=== PATIENT | male | born 1970 | race Caucasian/White ===

== ENCOUNTER 2018-10-08 10:02 | Inpatient (IN) | payer MEDICAID ==
[~2018-10-08] VITALS: Ht 167.6 cm; Wt 80.7 kg
--- NOTE | 2018-10-08 10:19 | NUR ---
Patient to ER bed 8 to gown for evaluation. Side rails up. Report given to Anu LUCERO
[2018-10-08 10:20] VITALS: BP_SYST 150
--- NOTE | 2018-10-08 10:32 | NUR ---
ER Dr. HATFIELD at bedside examining patient.
[2018-10-08] MEDS ORDERED: DIPHENHYDRAMINE INJ 50 MG/ML VIAL IVP ONE (10:45)
[2018-10-08] MEDS ORDERED: MORPHINE 4 MG/ML INJ. SYRINGE IVP ONE (10:45)
[2018-10-08] MEDS ORDERED: PANTOPRAZOLE SODIUM 40 MG/VIAL (PROTONIX) IVP ONE (10:45)
[2018-10-08] MEDS ORDERED: PIPERACILLIN/TAZO 3.38 GM in NS 50 ML IV ONE (10:45)
--- NOTE | 2018-10-08 10:45 | NUR ---
# 20 gauge angiocath placed to RIGHT AC. Use of asceptic technique. Opsite placed over site. Blood return noted. Blood for lab drawn from site. Flushed with 10 cc of normal saline. No evidence of infiltration noted. Patient tolerated well.
--- NOTE | 2018-10-08 10:47 | NUR ---
Pt ambulated to ED with complaints of upper abdominal pain 01/26. Pt stated pain stated this morning at 4am and has been persistent. Pt stated the last time he has had this type of pain 4 months ago. Pt connected to in room monitor.
[2018-10-08 11:02] LABS: BASOPHILS % (AUTO) 0.1 % (0.0-2.0); EOSINOPHILS % (AUTO) 0.2 % (0.0-4.0); HEMATOCRIT 47.8 % (36-54); HEMOGLOBIN 15.8 g/dL (14.0-18.0); LYMPHOCYTES # (AUTO) 0.8 K/uL (1.0-5.5); LYMPHOCYTES % (AUTO) 5.9 % (20.5-51.5); MEAN CORPUSCULAR HEMOGLOBIN 31 pg (27-31); MEAN CORPUSCULAR HGB CONC 33 % (32-36); MEAN CORPUSCULAR VOLUME 92 fL (79.0-98.0); MONOCYTES # (AUTO) 0.4 K/uL (0.0-1.0); MONOCYTES % (AUTO) 2.9 % (1.7-9.3); NEUTROPHILS # (AUTO) 12.3 K/uL (1.8-7.7); NEUTROPHILS % (AUTO) 90.9 % (40.0-70.0); PLATELET COUNT (AUTO) 257 K/uL (130-430); RED CELL DISTRIBUTION WIDTH 13.2 % (9.0-15.0); WHITE BLOOD COUNT (AUTO) 13.5 K/uL (4.8-10.8)
--- NOTE | 2018-10-08 11:05 | NUR ---
PATIENT GETTING X RAY IN BED.
[2018-10-08 11:10] LABS: CALCIUM 9.3 mg/dL (8.4-11.0); CREATININE 1.16 mg/dL (0.55-1.30); POTASSIUM 3.7 mmol/L (3.5-5.1)
[2018-10-08] MEDS ORDERED: PIPERACILLIN/TAZOBACTAM 3.375 GM/VIAL (ZOSYN) IV ONE (11:11)
[2018-10-08 11:13] LABS: PROTHROMBIN TIME 10.6 SECS (9.5-12.5)
[2018-10-08 11:27] LABS: ALBUMIN 3.9 g/dL (3.4-4.8)
--- NOTE | 2018-10-08 11:37 | NUR ---
Radiology Pt off unit to CT
--- NOTE | 2018-10-08 11:44 | NUR ---
Radiology Pt returned from CT to room 8.
[2018-10-08 12:20] LABS: BILIRUBIN,URINE NEGATIVE (NEGATIVE); BLOOD, URINE NEGATIVE (NEGATIVE); CLARITY/URINE CLEAR (CLEAR); COLOR,URINE YELLOW (YELLOW); GLUCOSE,URINE NEGATIVE (NEGATIVE); KETONES,URINE NEGATIVE (NEGATIVE); LEUKOCYTE ESTERASE ,URINE NEGATIVE (NEGATIVE); NITRITE, URINE NEGATIVE (NEGATIVE); PH,URINE 8.5 (5.0-8.0); PROTEIN URINE NEGATIVE (NEGATIVE); UROBILINOGEN,URINE 0.2 (0.2-1.0)
[2018-10-08] MEDS ORDERED: NACL 0.9% 1,000 ML IV ONE (12:30)
--- NOTE | 2018-10-08 12:39 | NUR ---
Patient resting quietly. No acute distress noted. Vital signs within normal range.
--- NOTE | 2018-10-08 13:39 | NUR ---
Spoke to [facility] MED-SURG Room 123-B given.
[2018-10-08] MEDS ORDERED: MORPHINE 2 MG/ML INJ. SYRINGE IVP SCH (13:45)
--- NOTE | 2018-10-08 13:56 | NUR ---
CONSULTATION PAGED/CALLED Reason for Consultation: Pancreatitis Person Who was Notified: SOFYA Consulting Physician: DR. BECKER Occupational Therapy Program Director Specialty: HYDRATOR Ordering Physician:
--- NOTE | 2018-10-08 14:01 | NUR ---
Patient will be admitted to care of Dr. Corral. Admitted to MED-SURG unit. Will go to room 123-B. Belongings list completed. Summary report printed. Report given over the phone to
--- NOTE | 2018-10-08 14:03 | NUR ---
ADMISSION NOTE Received patient from ER via [place], Patient admitted with diagnosis of PANCREATITIS. Patient oriented to hospital routine, call light, toileting and safety-patient verbalized understanding.
[2018-10-08 14:09] VITALS: BP_SYST 113
--- NOTE | 2018-10-08 14:10 | NUR ---
OPENING NOTES, RECEIVED PT IN E.R. PT IS AAOX4, C/O OF MID TO RIGHT ABD PAIN 5/10, WILL MEDICATE, NO SOB NO DISTRESS. NOTED THAT PT WAS SHAKING/ STATED THAT HE IS COLD. COVERED WITH BLANKET AND MADE COMFORTABLE. PT'S BROTHER AT BEDSIDE. , PT EDUCATED ON THE USE OF CALL LIGHT , TV AND BED CONTROLS. ENCOURGAED TO CALL FOR ASSIST AND PAIN MEDS AND ANY OTHER CONCERNS. WILL CONT TO MONITOR.
[2018-10-08] MEDS: D5NS 500 ML IV SCH ×2 (14:49→20:41)
--- NOTE | 2018-10-08 14:58 | NUR ---
pt given pain med for abdominal pain. will cont to monitor. pt kept npo.
--- NOTE | 2018-10-08 15:50 | NUR ---
PT IN BED, STILL HAVE PAIN, WILL CONT TO MONITOR. IV FLUIDS INFUSING WELL.
[2018-10-08] MEDS ORDERED: ZOLPIDEM TARTRATE 5 MG TABLET PO PRN (16:30)
[2018-10-08] MEDS ORDERED: MUPIROCIN 2% TOPICAL OINTMENT 22 GM NS PRN (16:30)
[2018-10-08] MEDS ORDERED: MAGNESIUM SULFATE 50 ML IV PRN (16:30)
[2018-10-08] MEDS ORDERED: MORPHINE 2 MG/ML INJ. SYRINGE IVP PRN ×2 (16:30)
[2018-10-08] MEDS ORDERED: DOCUSATE SODIUM 100 MG CAPSULE PO PRN (16:30)
[2018-10-08] MEDS ORDERED: POTASSIUM CHLORIDE 20 MEQ TAB.PRT.SR PO PRN (16:30)
[2018-10-08] MEDS ORDERED: ACETAMINOPHEN 325 MG TABLET PO PRN (16:30)
[2018-10-08] MEDS ORDERED: ONDANSETRON HCL 4 MG/2 ML VIAL IVP PRN (16:30)
[2018-10-08] MEDS ORDERED: LORazepam 2 MG/ML VIAL IVP PRN (16:30)
[2018-10-08 16:40] VITALS: BP_SYST 142
--- NOTE | 2018-10-08 18:33 | NUR ---
CLOSING NOTES, PT HAS NO FEVER, GIVEN PAIN MEDS FOR ABDOMINAL PAIN, KEPT NPO ORDERED. EXPLAINED TO PT AND FAMILY WHY HE NEEDS TO BE NO FOOD NO WATER. WILL ENDORSE TO NIGHT RN.
--- NOTE | 2018-10-08 19:08 | NUR ---
Opening Notes Received the patient in bed resting aaox4 and able to verbalize his needs. No complaints of pain at this time. Family is at the bedside. IV on the RIGHT AC 20g infusing D5NS at 80ml. Oriented the patient to the room and use of the call light. Call light within reach and Urinal on the right side. Bed alarm is active and safety precautions in place. Will monitor on rounds for any change in condition.
[2018-10-08 20:00] VITALS: BP_SYST 106
[2018-10-08] MEDS ORDERED: PHENYLEPHRINE HCL 10 MG/ML VIAL (NEOSYNEPHRINE) IV ONE (21:00)
[2018-10-08] MEDS ORDERED: PROPOFOL 200MG/ 20ML VIAL (DIPRIVAN) IV ONE (21:00)
[2018-10-08] MEDS ORDERED: ONDANSETRON HCL 4 MG/2 ML VIAL IVP ONE (21:00)
[2018-10-08] MEDS ORDERED: ROCURONIUM BROMIDE 10 MG/ML (ZEMURON) IV ONE (21:00)
[2018-10-08] MEDS ORDERED: MIDAZOLAM HCL 5 MG/5 ML VIAL IVP ONE (21:00)
[2018-10-08] MEDS ORDERED: LR 1,000 ML IV.SOLN IV ONE (21:00)
[2018-10-08] MEDS ORDERED: GLYCOPYRROLATE 0.2 MG/ML VIAL IJ ONE (21:00)
[2018-10-08] MEDS ORDERED: SEVOFLURANE 15 MIN GAS INH ONE (21:00)
[2018-10-08] MEDS ORDERED: NS 1000 ML IV.SOLN IV ONE (21:00)
[2018-10-08] MEDS ORDERED: fentaNYL CITRATE/PF 100 MCG/2 ML AMP IVP ONE (21:00)
[2018-10-08] MEDS ORDERED: BUPIVACAINE /EPINEPHRINE/PF 0.25% 30 ML VIAL INJ ONE (21:00)
[2018-10-08] MEDS ORDERED: KETOROLAC TROMETHAMINE 30 MG VIAL IVP ONE (21:00)
--- NOTE | 2018-10-08 22:15 | NUR ---
PATIENT RESTING COMFORTABLY IN BED. NO COMPLAINTS OF PAIN OR RESPIRATORY DISTRESS AT THIS TIME. WILL CONT TO MONITOR ON ROUNDS.
[2018-10-09] VITALS: BP_SYST 110
--- NOTE | 2018-10-09 00:04 | NUR ---
POSITIVE BLOOD CULTURE. GRAM + COCCI IN PAIRS. RECEIVED FROM MICHAEL. HERIBERTO
--- NOTE | 2018-10-09 00:08 | NUR ---
paged paged for Dr Corral, dialed . picked up call.
--- NOTE | 2018-10-09 00:10 | NUR ---
RECEIVED CALL FROM DR MAHAJAN. NO NEW ORDERS AT THIS TIME.
[2018-10-09] MEDS: LR 1,000 ML IV SCH ×4 (00:35→20:21)
--- NOTE | 2018-10-09 02:08 | NUR ---
PATIENT IN BED ASLEEP WITH AUDIBLE BREATH SOUNDS HEARD. NO APPEARANCE OF PAIN OR RESPIRATORY DISTRESS. CALL LIGHT AND URINAL WITHIN REACH.
--- NOTE | 2018-10-09 04:34 | NUR ---
NO CHANGE IN CONDITION.
[2018-10-09 06:28] LABS: BASOPHILS % (AUTO) 0.1 % (0.0-2.0); EOSINOPHILS % (AUTO) 0.3 % (0.0-4.0); HEMATOCRIT 41.3 % (36-54); HEMOGLOBIN 13.8 g/dL (14.0-18.0); LYMPHOCYTES # (AUTO) 0.8 K/uL (1.0-5.5); LYMPHOCYTES % (AUTO) 7.8 % (20.5-51.5); MEAN CORPUSCULAR HEMOGLOBIN 31 pg (27-31); MEAN CORPUSCULAR HGB CONC 33 % (32-36); MEAN CORPUSCULAR VOLUME 92 fL (79.0-98.0); MONOCYTES # (AUTO) 0.3 K/uL (0.0-1.0); MONOCYTES % (AUTO) 3.2 % (1.7-9.3); NEUTROPHILS # (AUTO) 8.8 K/uL (1.8-7.7); NEUTROPHILS % (AUTO) 88.6 % (40.0-70.0); PLATELET COUNT (AUTO) 189 K/uL (130-430); RED BLOOD CELL COUNT(AUTO) 4.49 MIL/uL (4.2-6.2); RED CELL DISTRIBUTION WIDTH 13.3 % (9.0-15.0); WHITE BLOOD COUNT (AUTO) 9.9 K/uL (4.8-10.8)
--- NOTE | 2018-10-09 06:45 | NUR ---
CLOSING NOTES PATIENT IN BED RESTING. PATIENT REQUESTING TO REMOVE BIPAP. RT CALLED AND WILL REMOVE AFTER THEIR CHANGE OF SHIFT. IV SITE CDI. BED LOCKED AND LOW WITH ALARM ACTIVE. ALL NEEDS HAVE BEEN MET AND WILL ENDORSE CARE TO ONCOMING SHIFT. Addendum: 10/09/18 at 0648 by Jovany Doan RN WRONG PATIENT. DISREGARD.
--- NOTE | 2018-10-09 06:48 | NUR ---
CLOSING NOTE PATIENT IN BED RESTING. 1 URINE OUTPUT AT 400ML RECORDED. IV FLUIDS LR INFUSING AT 150ML/HR. SITE CDI. NO PAIN OR SOB AT THIS TIME. ALL NEEDS HAVE BEEN MET AND WILL ENDORSE CARE TO ONCOMING NURSE.
[2018-10-09 07:04] LABS: ALBUMIN 2.9 g/dL (3.4-4.8); BILIRUBIN,DIRECT 1.8 mg/dL (0.0-0.3); CALCIUM 8.6 mg/dL (8.4-11.0); CREATININE 0.84 mg/dL (0.55-1.30); POTASSIUM 3.2 mmol/L (3.5-5.1); TOTAL BILIRUBIN 3.5 mg/dL (0.0-1.0)
--- NOTE | 2018-10-09 07:40 | NUR ---
INITIAL ROUNDS Received pt AAOx4, no s/s resp distress, no c/o pain or discomfort. IVF infusing well to RAC at ordered rate with no s/s infiltration to site. Plan of care for the day reviewed with pt-pt verbalized his understanding. Pain management, disease process, skin and safety discussed-teach back done. Call light within reach.
[2018-10-09] MEDS ORDERED: POTASSIUM CHLORIDE 40 MEQ, LIDOCAINE JECT 2% PF 100 MG 75 MG in NS 250 ML IV ONE (07:45)
[2018-10-09 08:13] VITALS: BP_SYST 123
--- NOTE | 2018-10-09 08:32 | NUR ---
ID consult called: for Chencho Funez regarding bacteremia, ordered by Dr. Corral, spoke with Nohemy. Face sheet faxed to [phone]
--- NOTE | 2018-10-09 08:41 | NUR ---
Surgery consult called: for Dr. Phipps, regarding gallstone pancreatitis, ordered by Dr. Corral, spoke with Madelaine.
[2018-10-09] MEDS ORDERED: PIPERACILLIN/TAZO 3.375/DEX-IS 50 ML IV ONE (09:00)
--- NOTE | 2018-10-09 10:47 | NUR ---
Nutrition Update Jose Scale 18 noted. Pt admitted for pancreatitis. Diet: NPO BMI: 28.7 kg/m2 RD to follow per nutrition care standards.
--- NOTE | 2018-10-09 11:05 | NUR ---
ROUNDS Pt resting quietly in bed with no s/s resp distress, no c/o pain or discomfort. Pt given Zosyn as ordered, pt educated on Zosyn-teach back done. Pt's family at bedside. Needs met, call light within reach.
[2018-10-09 12:04] VITALS: BP_SYST 128
--- NOTE | 2018-10-09 15:09 | NUR ---
ROUNDS Pt resting quietly in bed with no s/s resp distress, no c/o pain or discomfort. No changes, call light within reach.
[2018-10-09] MEDS: PIPERACILLIN/TAZO 3.375/DEX-IS 50 ML IV SCH ×2 (15:39→20:24)
[2018-10-09 16:14] VITALS: BP_SYST 131
--- NOTE | 2018-10-09 18:28 | NUR ---
CLOSING NOTE Pt resting quietly in bed visiting with his family. No s/s resp distress, no c/o pain or discomfort. IVF infusing well to RAC at ordered rate with no s/s infiltration to site. Needs met, call light within reach.
[2018-10-09 19:00] VITALS: BP_SYST 103
--- NOTE | 2018-10-09 19:00 | NUR ---
change of shift.p.presents quiescent affect;calm,viewing tv programming.pt.to submit to mri/mrcp;10/10/18;teresa day shift has witnessed the pt.sign the mri/mrcp consent and has attended to the mri/mrp;questionaire.iv fluids infusing.general status stable.respiratory status stable;unlabored.urinal w./u the reach of the pt.call light/telephone w/in the reach of the pt.
[2018-10-09 20:00] VITALS: BP_SYST 103
--- NOTE | 2018-10-09 20:00 | NUR ---
pt.assessed.v/s assessed;values w/in normal limits.i inquired if the pt.presents pain,nausea.the pt.stated, no,he is fine.i have inspected the urinal;clean.w/in the reach of the pt.i have assessed the iv access ;intact;patent;iv fluids infusing.pt.capable to reposition self.general status stable.respiratory status stable.call light/telephone placed w/in the reach of the pt.
--- NOTE | 2018-10-09 21:00 | NUR ---
2100p medication administered;zosyn;abx;ivpb.i inquired if the pt.presents pain,nausea.the pt.stated no,he is fine.i inquired if the pt.requires a blanket.the pt.stated no he is not cold.
--- NOTE | 2018-10-09 22:00 | NUR ---
pt.assessed.pt.presents quiescent affect;calm,somnolent.i have inspected the urinal;clean.w/in the reach of pt.i have assessed the iv access;intact;patent;iv ;fluids infusing.general status stable.respiratory status stable;unlabored.pt.capable to reposition self.call light/telephone w/in the reach of the pt.
--- NOTE | 2018-10-09 22:30 | NUR ---
has assessed the pt.for possible surgery; to await;review the results of the mri/mrcp 10/10/18.
--- NOTE | 2018-10-10 | NUR ---
pt.assessed.v/s assessed;values w/in normal limits.no c/o pain,nausea.i have inspected the urinal;clean;pt.had ambulated to the restroom to urinate.i have assessed the iv acces intact patent;iv fluids infusing.general status stable.respiratory status stable.pt.capable to reposition self.call light/telephone placed w/in the reach of the pt.
[2018-10-10 00:36] VITALS: BP_SYST 105
[2018-10-10] MEDS: LR 1,000 ML IV SCH ×4 (01:12→21:55)
--- NOTE | 2018-10-10 01:15 | NUR ---
i have changed the iv fluids bag.i inquired if the pt,.present pain/nausea.pt.stated no he is fine.
--- NOTE | 2018-10-10 02:00 | NUR ---
pt.assessed pt.presents quiescent affect;calm,somnolent.i have assessed the iv fluids access;intact;patent;iv fluids infusing. i have assessed the urinal;clean;w/in the reach of the pt.general status stable.respiratory status stable.unlabored.pt.capable to reposition self. call light/telephone w/in the reach of the pt.
[2018-10-10] MEDS: PIPERACILLIN/TAZO 3.375/DEX-IS 50 ML IV SCH ×4 (02:59→20:40)
--- NOTE | 2018-10-10 04:00 | NUR ---
pt.assessed.pt present quiescent affect;calm,somnolent.i have assessed the iv access;intact;patent;iv fluids infusing. i have inspected the urinal:clean.general status stable;respiratory status stable.pt.capable to reposition self.call light/telephone w/in the reach of the pt.
--- NOTE | 2018-10-10 06:20 | NUR ---
pt.assessed.pt.presents quiescent affect;calm.somnolent.no c/o pain,nausea.i have assessed the iv access;intact;patent.iv fluids infusing. i have inspected the urinal;pt has ambulated to the restroom.general status stable.respiratory status stable.call light/telephone placed w/in the reach of the pt.
[2018-10-10 06:47] LABS: BASOPHILS % (AUTO) 0.5 % (0.0-2.0); EOSINOPHILS # (AUTO) 0.2 K/uL (0.0-0.4); EOSINOPHILS % (AUTO) 4.2 % (0.0-4.0); HEMATOCRIT 42.6 % (36-54); HEMOGLOBIN 14.1 g/dL (14.0-18.0); LYMPHOCYTES # (AUTO) 0.7 K/uL (1.0-5.5); LYMPHOCYTES % (AUTO) 17.1 % (20.5-51.5); MEAN CORPUSCULAR HEMOGLOBIN 31 pg (27-31); MEAN CORPUSCULAR HGB CONC 33 % (32-36); MEAN CORPUSCULAR VOLUME 93 fL (79.0-98.0); MONOCYTES # (AUTO) 0.3 K/uL (0.0-1.0); MONOCYTES % (AUTO) 6.8 % (1.7-9.3); NEUTROPHILS # (AUTO) 2.9 K/uL (1.8-7.7); NEUTROPHILS % (AUTO) 71.4 % (40.0-70.0); PLATELET COUNT (AUTO) 188 K/uL (130-430); RED BLOOD CELL COUNT(AUTO) 4.59 MIL/uL (4.2-6.2); RED CELL DISTRIBUTION WIDTH 13.4 % (9.0-15.0)
[2018-10-10 07:07] LABS: WHITE BLOOD COUNT (AUTO) 4.1 K/uL (4.8-10.8)
[2018-10-10 07:24] LABS: ALBUMIN 2.8 g/dL (3.4-4.8); BILIRUBIN,DIRECT 1.9 mg/dL (0.0-0.3); CALCIUM 8.7 mg/dL (8.4-11.0); CREATININE 0.88 mg/dL (0.55-1.30); POTASSIUM 3.4 mmol/L (3.5-5.1)
--- NOTE | 2018-10-10 07:30 | NUR ---
OPENING NOTE Patient resting in the bed comfortable. No acute distress. AAO x 4. Denied of pain. Skin warm and dry to touch. IV intact to RAC, no redness, no swelling, no drainage. On LR at 150ml/hr, infusing well. Discussed the safety issue, use call light when needs help, and plan of care, verbally understanding. Safety measure maintained. Bed locked in low position, side rails up. Refused bed alarm, risk and benefit explained, verbally understanding. Call light within reached. Will continue to monitor.
[2018-10-10 07:45] VITALS: BP_SYST 126
--- NOTE | 2018-10-10 08:42 | NUR ---
SEEN AND EXAMINED BY IVORY VALENZUELA WITH ORDER OF HIDA SCAN.
--- NOTE | 2018-10-10 10:20 | NUR ---
ROUND Patient resting in the bed. No acute distress. IV intact, IVF infusing well. Family at bedside. Safety measure maintained. Call light within reached. Bed locked in low position, side rails up. Continue to monitor.
--- NOTE | 2018-10-10 11:20 | NUR ---
SEEN AND EXAMINED BY DR. MAHAJAN [facility].
--- NOTE | 2018-10-10 11:34 | NUR ---
OFF UNIT FOR MRCP VIA WHEELCHAIR IN STABLE CONDITION.
--- NOTE | 2018-10-10 12:29 | NUR ---
RECEIVED THE CALL FROM [facility], RADIOLOGY DEPT, PATIENT FINISHED MRCP AND WILL GO TO [facility], NOT BACK TO UNIT AT THIS TIME.
[2018-10-10 12:48] VITALS: BP_SYST 124
--- NOTE | 2018-10-10 13:30 | NUR ---
Dietitian Recommendations * Recommend continuing NPO * Consider advance diet if/when medically appropriate LP, RD Please refer to Nutrition Assessment for details.
--- NOTE | 2018-10-10 14:11 | NUR ---
PATIENT BACK TO UNIT VIA WHEELCHAIR IN STABLE CONDITION.
--- NOTE | 2018-10-10 16:25 | NUR ---
RESTING Patient resting in the bed. No acute distress. IV intact, IVF infusing well. safety measure maintained. Call light within reached. Bed locked in low position, side rails up. Continue to monitor.
[2018-10-10 16:45] VITALS: BP_SYST 120
--- NOTE | 2018-10-10 18:48 | NUR ---
CLOSING NOTE Patient resting in the bed comfortable. No acute distress. Denied of pain. Skin warm and dry to touch. IV intact to RAC, no redness, no swelling, no drainage. On LR at 150ml/hr, infusing well. All needs met and attended. Safety measure maintained. Bed locked in low position, side rails up. Refused bed alarm, risk and benefit explained, verbally understanding. Call light within reached. Will endorse to night nurse.
[2018-10-10 19:00] VITALS: BP_SYST 108
--- NOTE | 2018-10-10 19:00 | NUR ---
change of shift.pt.presents quiescent affect;calm,family visiting@bedside.pt.presents no c/o pain,nausea.pt.presents diet status:npo. pt.capable to reposition self.general status stable.respiratory status stable.@room air.call light/telephone w/in reach of the pt.
[2018-10-10 20:00] VITALS: BP_SYST 108
--- NOTE | 2018-10-10 20:00 | NUR ---
pt.assessed.v/s assessed;values w/in normal limits.no c/o, pain,nausea.pt.had submitted to mri/mrcp;hida scan. ;surgeon awaiting the results.diet status remains npo.pt.presents iv fluids:infusing.general status stable. respiratory status stable@room air.urinal w/in reach.pt.capable to reposition self.pt.ambulatory.call light/telephone placed w/in the reach of the pt.
--- NOTE | 2018-10-10 21:00 | NUR ---
2100p medication administered;zosyn;abx;ivpb.
--- NOTE | 2018-10-10 22:00 | NUR ---
pt.assessed.pt.presents quiescent affect;calm,somnolent.i have assessed the iv access;intact;patent.i have inspected the urinal;clean. pt.ambulating to the restroom.general status stable.respiratory status stable.pt.capable to reposition self.call light/telephone w/in the reach of the pt.
--- NOTE | 2018-10-11 | NUR ---
pt.assessed.v/s assessed;values w/in normal limits.pt.presents quiescent affect;calm,somnolent.no c/o pain,nausea. iv access intact patent;iv fluids infusing.general status stable.respiratory status stable.pt.capable to reposition self.call light/telephone w/in the reach of the pt.
[2018-10-11 00:27] VITALS: BP_SYST 112
--- NOTE | 2018-10-11 02:00 | NUR ---
pt.assessed.pt.presents quiescent affect;calm,somnolent.iv fluids infusing.i have inspected the urinal;clean.general status stable.respiratory status stable.pt.capable to reposition self.call light/telephone w/in the reach of the pt.
--- NOTE | 2018-10-11 03:00 | NUR ---
i have changed the iv fluids bag.i have administered the zosyn;abx;ivpb.pt.had requested socks.i have provided the socks. pt.had requested deodorant.i have provided the deodorant.no additional requests posited @this hour.
[2018-10-11] MEDS: PIPERACILLIN/TAZO 3.375/DEX-IS 50 ML IV SCH ×4 (03:04→22:00)
[2018-10-11] MEDS: LR 1,000 ML IV SCH ×3 (03:05→19:42)
--- NOTE | 2018-10-11 04:00 | NUR ---
pt.assessed.pt.presents quiescent affect;calm,somnolent.iv fluids infusing.general status stable.respiratory status stable. pt.capable to reposition self.call light/telephone w/in the reach of the pt.
--- NOTE | 2018-10-11 06:11 | NUR ---
pt.assessed.pt.awake.pt.attended to oral care.no c/o pain,nausea.iv access;intact,patent;iv fluids infusing. general status stable.respiratory status stable.call light/telephone w/in the reach of the pt.
[2018-10-11 06:22] LABS: BASOPHILS % (AUTO) 0.5 % (0.0-2.0); EOSINOPHILS # (AUTO) 0.2 K/uL (0.0-0.4); EOSINOPHILS % (AUTO) 3.8 % (0.0-4.0); HEMATOCRIT 44.1 % (36-54); HEMOGLOBIN 14.5 g/dL (14.0-18.0); LYMPHOCYTES # (AUTO) 1.1 K/uL (1.0-5.5); LYMPHOCYTES % (AUTO) 24.5 % (20.5-51.5); MEAN CORPUSCULAR HEMOGLOBIN 30 pg (27-31); MEAN CORPUSCULAR HGB CONC 33 % (32-36); MEAN CORPUSCULAR VOLUME 92 fL (79.0-98.0); MONOCYTES # (AUTO) 0.4 K/uL (0.0-1.0); MONOCYTES % (AUTO) 8.6 % (1.7-9.3); NEUTROPHILS # (AUTO) 2.7 K/uL (1.8-7.7); NEUTROPHILS % (AUTO) 62.6 % (40.0-70.0); PLATELET COUNT (AUTO) 206 K/uL (130-430); RED BLOOD CELL COUNT(AUTO) 4.78 MIL/uL (4.2-6.2); RED CELL DISTRIBUTION WIDTH 13.3 % (9.0-15.0); WHITE BLOOD COUNT (AUTO) 4.4 K/uL (4.8-10.8)
[2018-10-11 07:02] LABS: ALBUMIN 2.8 g/dL (3.4-4.8); CALCIUM 8.7 mg/dL (8.4-11.0); CREATININE 0.91 mg/dL (0.55-1.30); POTASSIUM 3.8 mmol/L (3.5-5.1); TOTAL BILIRUBIN 1.7 mg/dL (0.0-1.0)
[2018-10-11 07:59] VITALS: BP_SYST 125
--- NOTE | 2018-10-11 08:00 | NUR ---
Opening notes, received pt in bed, pt is aaox4, c/o of on and off pain on his ruq. pain is tolerable. pt seen walking from bathroom with steady gait. safety precaution in place. call light in reach at all time, bed alarm on bed in low position. encouraged to call for assistance , pain meds or any other concerns. will cont to monitor.
--- NOTE | 2018-10-11 10:18 | NUR ---
DR MAHAJAN HERE AND SEEN PT. ORDERED TO CALL DR CUMMINGS AND INFORM HIM THAT HIDA AND MRCP ARE NEGATIVE AND PT NEED SCHEDULE FOR SURGERY. WILL INFORM .
[2018-10-11 12:45] VITALS: BP_SYST 114
--- NOTE | 2018-10-11 14:41 | NUR ---
INFORMED O.R. JEANNIE/JAZMINE RANDOLPH RE SCHEDULE BY DR CHELITA RODRÍGUEZ FOR LAP VS OPEN CHOLECYSTECTOMY.
[2018-10-11 16:53] VITALS: BP_SYST 134
--- NOTE | 2018-10-11 19:20 | NUR ---
INITIAL NOTES: PATIENT IN BED AWAKE ORIENTED X4. NPO. REPORTED PATIENT IS FOR SURGERY AROUND 2029- 2099. VITAL SIGNS TAKEN. IVF LR INFUSING AT 150ML/HR. SITE CLEAR.CCHG PARTIAL BATH DONE BY ASPHALT DAUBER.FAMILIES AT BEDSIDE.
--- NOTE | 2018-10-11 19:30 | NUR ---
LOW BLOOD SUGAR. NOTED BLOOD SUGAR DRAWN AT AM 76MG/DL. FOR PRE OP CHECKLIST. RECHECKED 7O VOIDED FREELY.MG/DL, SINCE PT NPO AND HAVING HEADACHE.
[2018-10-11 19:44] VITALS: BP_SYST 130
--- NOTE | 2018-10-11 20:08 | NUR ---
CLOSING NOTES, PT IN STABLE CONDITION, ENDORSED TO NIGHT RN THAT PT IS GOING TO SURGERY TONIGHT WITH DR MERLOS. SURGICAL PAPERS IN CHART. CHG BATH GIVEN.
[2018-10-11] MEDS ORDERED: DEXTROSE 50% JECT 50 ML DISP.SYRIN IVP ONE (20:30)
[2018-10-11] MEDS ORDERED: DEXTROSE 50% JECT 50 ML DISP.SYRIN ONE (20:40)
--- NOTE | 2018-10-11 20:45 | NUR ---
BROUGHT PATIENT TO SURGERY ACCOMPANIED BY GENERATION TECHNICIAN AND PRIMARY RN AWAKE WITH IVF, GENERATION TECHNICIAN WILL RE CHECK BS IN OR.
[2018-10-11] MEDS ORDERED: ONDANSETRON HCL 4 MG/2 ML VIAL IVP PRN ×2 (22:00)
[2018-10-11] MEDS ORDERED: ACETAMINOPHEN 325 MG TABLET PO PRN (22:00)
[2018-10-11] MEDS ORDERED: KETOROLAC TROMETHAMINE 30 MG VIAL IVP PRN (22:00)
[2018-10-11] MEDS ORDERED: fentaNYL CITRATE/PF 100 MCG/2 ML AMP IVP PRN (22:00)
[2018-10-11 22:22] VITALS: BP_SYST 130
[2018-10-11] MEDS: fentaNYL CITRATE/PF 100 MCG/2 ML AMP IVP PRN ×2 (22:30→22:45)
[2018-10-11] MEDS ORDERED: fentaNYL CITRATE/PF 100 MCG/2 ML AMP ONE ×2 (22:37→23:00)
[2018-10-11] MEDS: NACL 0.9% 1,000 ML IV SCH (23:45)
[2018-10-11] MEDS: HYDROmorphone 1 MG INJ. 1 MG/ML AMPUL IVP PRN (23:53)
--- NOTE | 2018-10-11 23:55 | NUR ---
PATIENT BACK TO ROOM,AWAKE BUT DROWSY. REPORT TAKEN. EBL 10ML. HAS 4 SMALL SURGICAL INCISION ,DRESSING TO NAVEL AREA WITH SMALL DRAINAGE LIGHT PINKISH ,RT, DRESSING SCANT PINKISH COLOR. HAVING POST OP PAIN. WILLMEDICATE SOON.
[2018-10-12] MEDS: metroNIDAZOLE 500 mg/NS 100 ML IV SCH ×2 (00:05→07:58)
--- NOTE | 2018-10-12 00:05 | NUR ---
MEDICATED WITH DILAUDID 1MG FOR PAIN. IS INITIATED AT 500 700ML. VOIDED FREELY.
[2018-10-12] MEDS ORDERED: metroNIDAZOLE 500 mg/NS 200 ML IV ONE (00:18)
[2018-10-12] MEDS ORDERED: CEFAZOLIN 2 GM IVPB PREMIX 100 ML IV ONE (00:20)
[2018-10-12] MEDS: LR 1,000 ML IV SCH ×4 (00:35→20:35)
[2018-10-12 00:40] VITALS: BP_SYST 122
[2018-10-12] MEDS: CEFAZOLIN 2 GM IVPB PREMIX 50 ML IV SCH ×2 (01:00→08:57)
--- NOTE | 2018-10-12 01:05 | NUR ---
DUE NEW IVPB INITIATED.
[2018-10-12] MEDS: PIPERACILLIN/TAZO 3.375/DEX-IS 50 ML IV SCH ×2 (03:00→08:58)
[2018-10-12] MEDS: HYDROmorphone 1 MG INJ. 1 MG/ML AMPUL IVP PRN ×3 (03:05→17:46)
--- NOTE | 2018-10-12 03:10 | NUR ---
PAIN/ NAUSEA: COMPLIN OF POST OP PAIN AND NAUSEA. MEDICATED WITH DILAUDID 1MG IV FOR PAIN ,ZOFRAN 4MG IV GIVEN FOR NAUSEA. PATIENT VOIDED 500ML ,DARK NANCY COLOR.CALL LIGHT WITHIN REACH. NO DISTRESS.
[2018-10-12 05:42] LABS: BASOPHILS % (AUTO) 0.2 % (0.0-2.0); EOSINOPHILS % (AUTO) 0.4 % (0.0-4.0); HEMATOCRIT 42.9 % (36-54); HEMOGLOBIN 14.2 g/dL (14.0-18.0); LYMPHOCYTES # (AUTO) 0.9 K/uL (1.0-5.5); MEAN CORPUSCULAR HEMOGLOBIN 31 pg (27-31); MEAN CORPUSCULAR HGB CONC 33 % (32-36); MEAN CORPUSCULAR VOLUME 92 fL (79.0-98.0); MONOCYTES # (AUTO) 0.6 K/uL (0.0-1.0); MONOCYTES % (AUTO) 6.9 % (1.7-9.3); NEUTROPHILS # (AUTO) 6.9 K/uL (1.8-7.7); NEUTROPHILS % (AUTO) 81.5 % (40.0-70.0); PLATELET COUNT (AUTO) 241 K/uL (130-430); RED BLOOD CELL COUNT(AUTO) 4.67 MIL/uL (4.2-6.2); RED CELL DISTRIBUTION WIDTH 13.2 % (9.0-15.0); WHITE BLOOD COUNT (AUTO) 8.4 K/uL (4.8-10.8)
--- NOTE | 2018-10-12 06:30 | NUR ---
CLOSING: PAIN FAIRLY CONTROLLED BY DILAUDID IX X2. VOIDED FREELY. HAD USE INCENTIVE SPIROMETER. NO ACUTE DISTRESS. WILL ENDORSE CARE TO AM RN.
[2018-10-12 06:50] LABS: CALCIUM 8.5 mg/dL (8.4-11.0); CREATININE 0.72 mg/dL (0.55-1.30); POTASSIUM 3.6 mmol/L (3.5-5.1); TOTAL BILIRUBIN 1.2 mg/dL (0.0-1.0)
[2018-10-12 07:38] VITALS: BP_SYST 132
--- NOTE | 2018-10-12 07:45 | NUR ---
Opening notes, Received pt in bed, pt is aaox4, c/o of pain. Pt is s/p lap lidia. will medicate pt. iv fluids infusing well. no s/s of infiltration on iv site. safety precaution in place. call light in reach at all time, bed alarm on, bed in low position. encouraged to call for assistance , pain meds or any other concerns. will cont to monitor.
[2018-10-12] MEDS: NACL 0.9% 1,000 ML IV SCH ×2 (08:58→17:31)
[2018-10-12] MEDS: HYDROcodone/ACETAMIN 5-325 MG TAB (NORCO/ VICODIN) PO PRN (09:52)
--- NOTE | 2018-10-12 10:09 | NUR ---
pt c/o of nausea, pt given zofran. norco also given for pain. family at bedside. will cont to monitor.
[2018-10-12] MEDS ORDERED: LEVO750T45 PO (10:35)
[2018-10-12] MEDS ORDERED: VANC125C10 PO (10:37)
[2018-10-12] MEDS ORDERED: VANC250C11 IV (10:37)
[2018-10-12] MEDS ORDERED: HYDR-4272 PO (10:39)
--- NOTE | 2018-10-12 10:46 | NUR ---
Case mgt: Rec'd initial order for dc home-RX for PO abx--rec'd additional orders for dc planning for IV Vanco as per pharmacy to dose x 10 days. I spoke with nurse Esteban and explained pt hasn't received IV Vanco-usually MD orders first dose to be given inpt, then we need further clarification of dosing of Vanco 1st dose at home then pharmacy to dose. Also, explained to Carlito pt has straight Medi-felipe and may be challenge for find home health infusion company to accept pt's insurance and per Carlito, Dr. Chencho Rodriguez did not want pt having PICC line. Case mgt to f/u with Home Health for IV abx once Carlito calls Dr. Rodriguez for clarification on IV Vanco orders. JONN RN
--- NOTE | 2018-10-12 11:15 | NUR ---
PT SEEN WALKING IN THE HALLWAY WITH HIS BROTHER AND OTHER FAMILY MEMBER, PT STATED THAT PAIN AND NAUSEA IS GETTING BETTER. ENCOURAGED PT TO WALK MORE IN THE HALLWAY.
--- NOTE | 2018-10-12 11:15 | NUR ---
ID MD DR IVORY BECK WAS CALLED RE: CLARIFICATION OF VANC0 ORDER. SPOKE TO JOAO
--- NOTE | 2018-10-12 11:47 | NUR ---
VANCO ORDER: DR BECK ORDERED TO GIVE PT INITIAL DOSE OF 1 GRAM VANCO IVPB AND HOME HEALTH PHARMACY WILL DOSE THE SUCCEEDING DOSES. AGAIN DOES NOT WANT TO PICC LINE.
[2018-10-12 12:00] VITALS: BP_SYST 119
[2018-10-12] MEDS ORDERED: AMPICILLIN SODIUM/SULBACTAM NA 3 GM in NS 100 ML IV SCH (12:00)
--- NOTE | 2018-10-12 12:05 | NUR ---
CASE MNGR LUIS MADE AWARE THAT ORDER FOR VANCO IS IN PLACE. LUIS SAID SHE CAN START WORKING ON IT THOUGH IT MAY BE HARD TO FIND A AGENCY FOR MEDICAL PT, SHE WILL TRY.
[2018-10-12] MEDS: PIPERACILLIN/TAZOBACTAM 3.375 GM/ D5W 50 ML IV SCH ×4 (13:15→17:31)
--- NOTE | 2018-10-12 13:19 | NUR ---
PT IN BED, FAMILY AT BEDSIDE. PT RETURN DEMO I.S. PT STATED HE WILL WALK AGAIN LATER.
[2018-10-12] MEDS ORDERED: VANCOMYCIN HCL 1 GM/NS PREMIX 250 ML IV ONE (14:00)
[2018-10-12 14:06] LABS: HEPATITIS A AB, IgM Negative (Negative); HEPATITIS B CORE AB, IgM Negative (Negative); HEPATITIS B SURFACE AG Negative (Negative)
--- NOTE | 2018-10-12 16:01 | NUR ---
Discharge Planning: DCP faxed pt order to [facility] ( f [phone] p [phone]) DCP to follow up.
[2018-10-12 16:25] VITALS: BP_SYST 145
--- NOTE | 2018-10-12 17:09 | NUR ---
PT AMBULTING IN THE GREGORY WAY WITH FAMILY
--- NOTE | 2018-10-12 17:30 | NUR ---
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 JUST KEEP ON LOOKING.
--- NOTE | 2018-10-12 18:24 | NUR ---
DR MERLOS CALLED . MADE AWARE THAT PT IS STILL COMPLAINING OF PAIN , MAY BE MORE THAT BEFORE SURGERY. ORDERED FOR HIDA SCAN. SPOKE WITH DIMA OF [facility] AND SAID PT DOES NOT NEED TO BE NPO AND CAN HAVE PAIN MEDICATIONS FOR THE HIDA SCAN.
--- NOTE | 2018-10-12 18:37 | NUR ---
CLOSING NOTES, PT HAS BEEN STABLE BP MARTINEZ, NO FEVER. PT STILL HAVING A PAIN, STATED IT FEELS STRONGER THAN BEFORE HE HAD THE SURGERY. DR MERLOS MADE AWARE AND GAVE NEW ORDER. WILL ENDORSE TO NIGHT RN.
--- NOTE | 2018-10-12 20:00 | NUR ---
INITIAL NOTES: RECEIVED PATIENT IN BED AND REPORT FROM JAZMINE WEBSTER. AWAKE ORIENTED X4. IVF INFUSING WELL AT 100ML/HR.VITAL SIGNS TAKEN. ALL STABLE. POST OP ABDOMINAL DRESSING DRY AND INTACT.COMPLAINING OF MILD PAIN. MEDS NOT DUE YET.CALL LIGHT WITHIN REACH. BED IN LOW POSITION. WILL MONITOR CLOSELY.
--- NOTE | 2018-10-12 20:25 | NUR ---
INITIAL NOTES : PATIENT AWAKE SITTING AT BEDSIDE CHAIR, WATCHING TV SHOWS , AT BEDSIDE.HAS TOLERABLE POST OP PAIN.IVF INFUSING AT 100ML/HR. USING ABDOMINAL BINDER.. ENCOURAGED TO USE IS AND DID. SAID I ALWAYS USE THIS DURING THE DAY. CALL LIGHT WITHIN REACH. BED IN LOW POSITION. NO ACUTE DISTRESS.WILL MONITOR CLOSELY. VITAL SIGNS TAKEN. Addendum: 10/13/18 at 0631 by Laurel Diggs RN CHARTED ON WRONG PATIENT.
[2018-10-12 20:40] VITALS: BP_SYST 144
--- NOTE | 2018-10-12 21:00 | NUR ---
SEEN WALKING ON HALLWAY WITH WITH STEADY GAIT ,IVF INFUSING WELL.THEN VOIDED INSIDE BATHROOM. Addendum: 10/13/18 at 0633 by Laurel Diggs RN CHARTED ON WRONG PATIENT
--- NOTE | 2018-10-12 22:00 | NUR ---
SEEN AMBULATING TO BATHROOM TO VOID. NO DISTRESS.
[2018-10-12 23:51] VITALS: BP_SYST 138
[2018-10-13] MEDS: NACL 0.9% 1,000 ML IV SCH ×2 (00:24→17:02)
[2018-10-13] MEDS: PIPERACILLIN/TAZOBACTAM 3.375 GM/ D5W 50 ML IV SCH ×8 (00:35→17:03)
--- NOTE | 2018-10-13 00:35 | NUR ---
PAIN: COMPLAIN OF POST OP ABDOMINAL PAIN. TORADOL 30MG IV GIVEN.
[2018-10-13] MEDS: KETOROLAC TROMETHAMINE 30 MG VIAL IVP PRN ×2 (00:38→10:42)
--- NOTE | 2018-10-13 02:30 | NUR ---
PATIENT SLEEPING DURING THIS ROUNDS. NO ACUTE DISTRESS.
[2018-10-13] MEDS: LR 1,000 ML IV SCH ×2 (03:15→12:23)
--- NOTE | 2018-10-13 04:25 | NUR ---
IV ALARMING. WOKE UP AND WENT TO BATHROOM TO VOID. NO DISTRESS.
[2018-10-13 05:21] LABS: BASOPHILS % (AUTO) 0.3 % (0.0-2.0); EOSINOPHILS # (AUTO) 0.1 K/uL (0.0-0.4); EOSINOPHILS % (AUTO) 1.6 % (0.0-4.0); HEMATOCRIT 42.1 % (36-54); HEMOGLOBIN 13.9 g/dL (14.0-18.0); LYMPHOCYTES # (AUTO) 1.2 K/uL (1.0-5.5); LYMPHOCYTES % (AUTO) 19.7 % (20.5-51.5); MEAN CORPUSCULAR HEMOGLOBIN 30 pg (27-31); MEAN CORPUSCULAR HGB CONC 33 % (32-36); MEAN CORPUSCULAR VOLUME 92 fL (79.0-98.0); MONOCYTES # (AUTO) 0.5 K/uL (0.0-1.0); MONOCYTES % (AUTO) 8.1 % (1.7-9.3); NEUTROPHILS # (AUTO) 4.2 K/uL (1.8-7.7); NEUTROPHILS % (AUTO) 70.3 % (40.0-70.0); PLATELET COUNT (AUTO) 237 K/uL (130-430); RED BLOOD CELL COUNT(AUTO) 4.59 MIL/uL (4.2-6.2); RED CELL DISTRIBUTION WIDTH 13.2 % (9.0-15.0); WHITE BLOOD COUNT (AUTO) 5.9 K/uL (4.8-10.8)
--- NOTE | 2018-10-13 06:32 | NUR ---
CHARTED ON WRONG PATIENT. Addendum: 10/13/18 at 0633 by Laurel Diggs RN WRONG TIME.
--- NOTE | 2018-10-13 06:43 | NUR ---
CLOSING: ALL NEEDS WERE ATTENDED.VERBALIZED PAIN IS MUCH TOLERABLE THAN YESTERDAY.NO SIGNS OF BLEEDING. VOIDING AND AMBULATING WELL. DID USE INCENTIVE SPIROMETERX4 . ROOM AIR.WILL ENDORSE CARE TO AM RN.
[2018-10-13 07:00] LABS: ALBUMIN 2.9 g/dL (3.4-4.8); CALCIUM 8.8 mg/dL (8.4-11.0); CREATININE 0.84 mg/dL (0.55-1.30); POTASSIUM 3.8 mmol/L (3.5-5.1); TOTAL BILIRUBIN 1.1 mg/dL (0.0-1.0)
--- NOTE | 2018-10-13 07:22 | NUR ---
received report at the bedside. patient aaaox 4. went to the bathroom. walking at the hallway. vitals signs stable. afebrile. lungs bilaterally clear. abdomen with small dressing x 4. dry/intact. bed in low position, alarmed and locked. call lights within reach. instructed to call for assistance. to have Hida Scan at 0900am. needs to call Dr Phipps before discharge.
[2018-10-13 09:00] VITALS: BP_SYST 118
--- NOTE | 2018-10-13 09:00 | NUR ---
WENT FOR HIDA SCAN DONE.
--- NOTE | 2018-10-13 09:10 | NUR ---
NO DUE MEDICATION GIVEN.
[2018-10-13] MEDS ORDERED: VANCOMYCIN HCL 750 MG in NS 250 ML IV SCH ×2 (10:00→12:34)
--- NOTE | 2018-10-13 10:43 | NUR ---
TORADOL 30 MG IV GIVEN GRADE OF 6. MADE COMFORTABLE
--- NOTE | 2018-10-13 11:00 | NUR ---
vancomycin iv given
--- NOTE | 2018-10-13 11:55 | NUR ---
Discharge Planning: [facility] faxed referral to [facility] (f [phone] p [phone]), [facility] (f [phone] p [phone]) IV medication. [facility] to follow up. Addendum: 10/13/18 at 1247 by Adele Beyer DP [facility] (f [phone] p [phone]) per Laila patient only has emergency medical which does not cover home health. [facility] (f [phone] p [phone]) per [facility] emergency does not cover infusion. [facility]I made CM aware. Addendum: 10/13/18 at 1624 by Adele Beyer DP [facility] faxed pt referral to [facility] (f [phone] p [phone]) DCP to follow up
--- NOTE | 2018-10-13 11:59 | NUR ---
patient stable resting.
--- NOTE | 2018-10-13 12:33 | NUR ---
eating lunch and resting. verbalized no pain at this time.
[2018-10-13 12:39] VITALS: BP_SYST 120
--- NOTE | 2018-10-13 14:31 | NUR ---
Nutrition F/U RD reviewed pt's current EMR including diet Hx, physician notes, nursing notes, pertinent labs/meds/procedures, care trends and care activity. Current Diet Order: Clear liquid diet x 1 day Subjective information: Pt seen w/ RN at bedside providing care. Pt is POD 2 for lap lidia. Pt c/o a little bit of pain in abd RUQ. Pt reported that he tolerated Ensure Clear, jello and broth this morning. He stated that Ensure Clear at bedside that was untouched was from yesterday's tray. RD encouraged pt to drink Ensure first to make sure that he gets the nutrients from clear liquid diet. Pt verbalized understanding. Last BM 10/11. Per RN notes, pt is for HIDA scan. PO intake 100% average of 2 meals. BBed scale weight 174.6 lb. Pt denied any N/V. Current PO intake: Good 100% average of 2 meals. Estimated Energy Expenditure (kcals/day) 3758-7520 kcal/day (30-35 kcal/kg IBW for pancreatitis) Estimated Protein Required (g/day) 78-98 gm/day (1.2-1.5 gm/kg IBW for pancreatitis) Estimated Fluid Required (l/day) 2-2.3 L/day (1 ml/kcal/day for maintenance) Problem/Etiology/Signs/Symptoms Inadequate nutritional intakes related to increased metabolic demands as evidenced by NPO status, possible inflammation, and inability to meet estimated nutritional requirements. *ongoing Expected Outcomes/Goals - Monitor advancement of diet, appetite, and PO intakes w/ goal of pt meeting at least 75% of estimated nutritional intakes, labs trending WNL, and skin integrity/wt maintenance Dietitian Recommendations * Recommend continuing clear liquid diet per MD. * Consider advance diet if/when medically appropriate Follow Up High Risk: F/U in 2-3days
--- NOTE | 2018-10-13 14:37 | NUR ---
Dietitian Recommendations * Recommend continuing clear liquid diet per MD. * Consider advance diet if/when medically appropriate please see Nutrition F/U note for details. VICTOR MANUEL GAMBLE
--- NOTE | 2018-10-13 15:00 | NUR ---
Wendy charge nurse spoke to Dr Corral and Dr harrison. and said needs to find a place
--- NOTE | 2018-10-13 16:38 | NUR ---
hold discharge for now. Angela Screener Perfumer informed Wendy and Merle RN cannot find a home health to accept the patient due to insurance problem. Dr Corral and Dr Rodriguez made aware. Screener Perfumer will follow up again tomorrow.
[2018-10-13] MEDS: VANCOMYCIN HCL 750 MG in NS 250 ML IV SCH (17:03)
[2018-10-13] MEDS: HYDROcodone/ACETAMIN 5-325 MG TAB (NORCO/ VICODIN) PO PRN (17:10)
[2018-10-13 17:36] VITALS: BP_SYST 132
--- NOTE | 2018-10-13 18:00 | NUR ---
vancomycin iv and zozyn iv given.
--- NOTE | 2018-10-13 19:39 | NUR ---
endorsed to incoming nurse Quentin LUCERO
[2018-10-13 21:02] VITALS: BP_SYST 135
--- NOTE | 2018-10-13 21:15 | NUR ---
ASSIST PATIENT UP OUT OF BED AMBULATES TO REST ROOM STEADY GAIT NO SOB NOTED .
--- NOTE | 2018-10-14 | NUR ---
ABDOMEN BOWEL SOUNDS TONES ACTIVE DRESSINGS INTACT INCISIONS , NO BLEEDING NOTED SKIN REMAINS DRY ALSO WARM PATIENT AWAKE & ALERT .
[2018-10-14 00:15] VITALS: BP_SYST 117
--- NOTE | 2018-10-14 00:35 | NUR ---
ZOSYN 3.375 GM IVPB ADMINISTER ORDERED NO ALLERGIC REACTION NOTED SKIN RASH FREE RESPIRATIONS REGULAR ALSO UNLABORED / .
[2018-10-14] MEDS: PIPERACILLIN/TAZOBACTAM 3.375 GM/ D5W 50 ML IV SCH ×10 (01:30→23:38)
[2018-10-14] MEDS: VANCOMYCIN HCL 750 MG in NS 250 ML IV SCH ×3 (01:31→18:59)
[2018-10-14] MEDS: NACL 0.9% 1,000 ML IV SCH ×3 (01:31→21:07)
--- NOTE | 2018-10-14 03:50 | NUR ---
VANCOMYCIN 750 MG IVPB administer as ordered no ADVERSE Reaction noted chest movement symmetrical also unlabored .
--- NOTE | 2018-10-14 03:54 | NUR ---
HOURLY ROUNDING PATIENT AWAKE ON & OFF CALL JONES WITH PATIENT BED TO LOW POSITION CONTINUE TO MONITOR .
--- NOTE | 2018-10-14 07:48 | NUR ---
Patient is resting, A/Ox4. Ambulatory. No pain stated by patient at this time. Instructed on POC. Call light in place, bed locked at the lowest position, will continue to monitor.
--- NOTE | 2018-10-14 10:20 | NUR ---
patient is seen walking around the nursing station.
[2018-10-14 12:48] VITALS: BP_SYST 116
--- NOTE | 2018-10-14 13:00 | NUR ---
Discharge Planning: DCP spoke to Vinay at [facility] (f [phone] p [phone]) stated pt only has emergency medical no home health coverage. [facility] (f [phone] p [phone]) spoke with Lety at [phone] stated pt only has emergency medical no infusion coverage. [facility] private pay: [facility] x10 with drugs/supply $600.00 plus nursing $1,025.00 = 1,625.00 [facility] x10 with drugs/supply $720.00 plus nursing $1,025.00 = 1,745.00 DCP made nurse aware.
[2018-10-14 14:03] VITALS: BP_SYST 116
--- NOTE | 2018-10-14 15:45 | NUR ---
DC PLANNING: CM SPOKE WITH PATIENT AT BEDSIDE AND EXPLAINED TO PATIENT THAT HIS CURRENT INSURANCE EMERGENCY MEDICAL DOES NOT COVER HOME HEALTH BENEFITS. CM EXPLAINED TO PATIENT THAT COST WILL BE OUT OF POCKET. CM PROVIDED THE COST OF IV ABX AND HOME HEALTH SKILLED NURSE VISIT. HOWEVER, PATIENT STATED HE CURRENTLY DOES NOT WORK. HE HAS STOPPED WORKING SINCE MAY 2018. 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 PATIENT CURRENTLY LIVES AT HIS COUSIN HOUSE, HE IS RENTING A ROOM SINCE HE DOES NOT WORK. HE PAY OFF THE RENT BY HELPING HIS COUSIN. PATIENT WILL TALK TO HIS FAMILY IF THEY CAN HELP FINANCIALLY FOR THE COST OF IV ABX AND HOME HEALTH. CM TO FOLLOW UP WITH PATIENT LATER TODAY OR TOMORROW.
[2018-10-14 16:46] VITALS: BP_SYST 112
[2018-10-14] MEDS: HYDROcodone/ACETAMIN 5-325 MG TAB (NORCO/ VICODIN) PO PRN (16:54)
--- NOTE | 2018-10-14 18:30 | NUR ---
Patient finishes dinner, no signs of distress noted.
--- NOTE | 2018-10-14 19:30 | NUR ---
OPENING NOTES Pt and endorsement received from day shift nurse. Pt is AAOx4, sitting on a chair. Pt on IVF of NS at 100ml/hr and infusing well on right forearm G22. No complains of pain or discomfort at this time. No signs of acute distress or SOB noted. Encouraged to use call light when needed. Safety precautions in place with 3 side rails up, wheels locked, bed in lowest position. Call light with pt. Will continue to monitor.
[2018-10-14 21:10] VITALS: BP_SYST 107
--- NOTE | 2018-10-14 23:35 | NUR ---
ROUNDS Pt is resting in bed with both eyes closed. With visible chest rise and fall with unlabored breathing noted. IVF is patent and infusing well. No complains of pain. No signs of acute distress noted. Safety precautions in place and call light with pt. Will continue to monitor.
[2018-10-15 00:27] VITALS: BP_SYST 103
[2018-10-15] MEDS: VANCOMYCIN HCL 750 MG in NS 250 ML IV SCH ×2 (01:06→10:50)
--- NOTE | 2018-10-15 03:37 | NUR ---
ROUNDS Pt is resting in bed with both eyes closed. With visible chest rise and fall with unlabored breathing noted. Pt is easily arousable. IVF infusing well. No needs at this time. No signs of acute distress noted. Safety precautions in place and call light with pt. Will continue to monitor.
--- NOTE | 2018-10-15 06:27 | NUR ---
CLOSING NOTES Pt is resting in bed with both eyes closed, with visible chest rise and fall with unlabored breathing noted. IVF infusing well. No complains of pain or discomfort at this time. No signs of acute distress or SOB noted. All needs attended throughout the shift. Safety precautions maintained with 3 side rails up, wheels locked and bed in lowest position. Call light with pt. Will endorse to day shift nurse.
[2018-10-15] MEDS: PIPERACILLIN/TAZOBACTAM 3.375 GM/ D5W 50 ML IV SCH ×8 (07:35→23:41)
[2018-10-15 08:00] VITALS: BP_SYST 105
[2018-10-15] MEDS: KETOROLAC TROMETHAMINE 30 MG VIAL IVP PRN (09:16)
--- NOTE | 2018-10-15 10:20 | NUR ---
Patient is seen sitting on a chair. No signs of distress noted.
[2018-10-15 12:00] VITALS: BP_SYST 103
--- NOTE | 2018-10-15 12:40 | NUR ---
Patient finishes breakfast, no signs of distress noted. Will continue to monitor.
[2018-10-15 16:00] VITALS: BP_SYST 108
--- NOTE | 2018-10-15 16:05 | NUR ---
Patient is sitting in a chair, no signs of distress noted.
[2018-10-15] MEDS: NACL 0.9% 1,000 ML IV SCH (17:10)
[2018-10-15] MEDS: VANCOMYCIN HCL 1,250 MG in NS 250 ML IV SCH (18:13)
--- NOTE | 2018-10-15 18:30 | NUR ---
Patient is eating dinner without distress.
--- NOTE | 2018-10-15 19:21 | NUR ---
OPENING NOTES Pt and endorsement received from day shift nurse. Pt is AAOx4, lying in bed while watching tv. Pt on IVF of NS at 100ml/hr and infusing well on right forearm G22. No complains of pain or discomfort at this time. No signs of acute distress or SOB noted. Encouraged to use call light when needed. Safety precautions in place with 2 side rails up, wheels locked, bed in lowest position. Call light with pt. Will continue to monitor.
[2018-10-15 21:03] VITALS: BP_SYST 120
[2018-10-15 23:44] VITALS: BP_SYST 113
--- NOTE | 2018-10-16 00:19 | NUR ---
ROUNDS Pt is resting in bed with both eyes closed. With visible chest rise and fall with unlabored breathing noted. IVF patent and infusing well. No signs of acute distress noted. Safety precautions in place and call light with pt. Will continue to monitor.
[2018-10-16] MEDS: VANCOMYCIN HCL 1,250 MG in NS 250 ML IV SCH ×3 (01:00→18:23)
--- NOTE | 2018-10-16 04:37 | NUR ---
ROUNDS Pt is resting in bed with both eyes closed. With visible chest rise and fall with unlabored breathing noted. Pt is easily arousable. IVF infusing well. No needs at this time. Pt appears stable or not in distress. Safety precautions in place and call light with pt. Will continue to monitor.
[2018-10-16] MEDS: PIPERACILLIN/TAZOBACTAM 3.375 GM/ D5W 50 ML IV SCH ×6 (05:10→17:35)
[2018-10-16] MEDS: NACL 0.9% 1,000 ML IV SCH ×3 (05:11→21:42)
--- NOTE | 2018-10-16 06:15 | NUR ---
CLOSING NOTES Pt is resting in bed with both eyes closed, with visible chest rise and fall with unlabored breathing noted. IVF infusing well. No complains of pain or discomfort at this time. No signs of acute distress or SOB noted. All needs attended throughout the shift. Safety precautions maintained with 2 side rails up, wheels locked and bed in lowest position. Call light with pt. Will endorse to day shift nurse.
--- NOTE | 2018-10-16 08:15 | NUR ---
AM note patient resting in bed, a/ox4, states mild pain but tolerable at this time per patient, assessment complete, IV line is patent and infusing well, educated patient on plan of care and call light system, he verbalized understanding, bed in lowest position, two side rails up, call light placed within reach, fall and aspiration precautions in place.
--- NOTE | 2018-10-16 09:40 | NUR ---
Medication patient resting in bed, awake, states some mild pain but tolerable at this time, educated on IV antibiotic uses and potential side effects, he verbalized understanding, IV line is patent and infusing well, no other needs at this time, continuing to monitor, bed in lowest position, two side rails up, call light within reach, fall and aspiration precautions in place.
[2018-10-16 10:26] VITALS: BP_SYST 107
[2018-10-16] MEDS: HYDROcodone/ACETAMIN 5-325 MG TAB (NORCO/ VICODIN) PO PRN (11:02)
--- NOTE | 2018-10-16 11:02 | NUR ---
RN Rounds/Medication patient resting in bed, awake, states abdominal pain, educated on medication uses and potential side effects, he verbalized understanding and tolerated well, IV machine alarming, flushed IV, flushing well, continuing to monitor, continuing to monitor, bed in lowest position, two side rails up, call light within reach, fall and aspiration precautions in place.
[2018-10-16 12:41] VITALS: BP_SYST 137
--- NOTE | 2018-10-16 13:08 | NUR ---
RN rounds/medication patient resting in chair at bedside, stable condition, IV antibiotic hung and infusing well, hung late due to previous antibiotic still infusing, IV line is patent no s/s of infiltration, patient has no other needs at this time, continuing to monitor, bed in lowest position, two side rails up, call light placed within reach, fall and aspiration precautions in place.
[2018-10-16] MEDS: KETOROLAC TROMETHAMINE 30 MG VIAL IVP PRN ×2 (14:56→21:57)
--- NOTE | 2018-10-16 14:58 | NUR ---
RN Rounds/Medication patient resting ambulating in hallway, steady gait, returned to bed and states he has abdominal pain, educated on medication uses and potential side effects, he verbalized understanding and tolerated well, IV flushing well, continuing to monitor, continuing to monitor, bed in lowest position, two side rails up, call light within reach, fall and aspiration precautions in place.
[2018-10-16 16:13] VITALS: BP_SYST 108
--- NOTE | 2018-10-16 17:38 | NUR ---
Medication patient resting in chair at bedside, awake, states some mild pain but tolerable at this time, educated on IV antibiotic uses and potential side effects, he verbalized understanding, IV line is patent and infusing well, no other needs at this time, continuing to monitor, bed in lowest position, two side rails up, call light within reach, fall and aspiration precautions in place.
--- NOTE | 2018-10-16 18:25 | NUR ---
Closing note/Medication patient resting in chair at bedside, awake, states some mild pain but tolerable at this time, educated on IV antibiotic uses and potential side effects, he verbalized understanding, IV line is patent and infusing well, all needs met, will endorse report to [facility] shift nurse, bed in lowest position, two side rails up, call light within reach, fall and aspiration precautions in place.
--- NOTE | 2018-10-16 19:18 | NUR ---
OPENING NOTES RECEIVED PATIENT SITTING IN BED. VISITOR AT BEDSIDE. BREATHING UNLABORED ON ROOM AIR. DENIES PAIN AT THIS TIME. IVF INFUSING ORDERED. BED IN LOWEST LOCKED POSITION. CALL LIGHT WITH IN REACH.
[2018-10-16 21:43] VITALS: BP_SYST 124
--- NOTE | 2018-10-16 21:57 | NUR ---
PAIN MGT PATIENT MEDICATED WITH TORADOL ORDERED FOR C/O RT UPPER ABDOMINAL PAIN. VITAL SIGNS STABLE.
[2018-10-17] MEDS: VANCOMYCIN HCL 1,250 MG in NS 250 ML IV SCH (02:05)
--- NOTE | 2018-10-17 03:00 | NUR ---
ROUNDS PATIENT RESTING IN BED. NO DISTRESS NOTED. IVF INFUSING ORDERED.
[2018-10-17] MEDS: PIPERACILLIN/TAZOBACTAM 3.375 GM/ D5W 50 ML IV SCH ×6 (05:26→12:16)
--- NOTE | 2018-10-17 05:26 | NUR ---
ATB PATIENT DUE ANTIBIOTIC INFUSED. IV LINE INTACT.
--- NOTE | 2018-10-17 06:16 | NUR ---
CLOSING NOTES PATIENT RESTING IN BED. BREATHING UNLABORED ON ROOM AIR. IVF INFUSING WITH IV LINE INTACT. PATIENT NEEDS ATTENDED. BED IN LOWEST LOCKED POSITION. CALL LIGHT WITH IN REACH.
--- NOTE | 2018-10-17 07:30 | NUR ---
rn opening note Patient is ambulating in room, gait is steady. Patient educated hearing aid consultant light for assistance. Patient has no complaints at this time. Dr. Rodriguez is at nurses station states patient is ok to D/C will write script for medication. Patient has no other needs at this time. will continue to monitor.
[2018-10-17 08:00] VITALS: BP_SYST 131
[2018-10-17] MEDS: NACL 0.9% 1,000 ML IV SCH (09:50)
--- NOTE | 2018-10-17 09:50 | NUR ---
IV fluid Patient was walking the halls gait is steady no complaints of pain at this time. Patient was able to inspire 1500 on IS. Patients abdominal dressings are clean dry and intact. Patient educated international account manager light for assistance.IV fluid hung as ordered. no other needs at this time will continue to monitor
[2018-10-17 09:56] LABS: CALCIUM 9.3 mg/dL (8.4-11.0); CREATININE 1.05 mg/dL (0.55-1.30); POTASSIUM 3.7 mmol/L (3.5-5.1)
--- NOTE | 2018-10-17 11:21 | NUR ---
Nutrition F/U RD reviewed pt's current EMR including diet Hx, physician notes, nursing notes, pertinent labs/meds/procedures, care trends and care activity. Current Diet Order: Full liquid diet x 2 days Subjective information: Pt seen resting in bed at time of RD visit. Pt reported to be tolerating full liquid diet, denied any N/V. Last BM 10/17/18. Per bed huddle discussion, pt may get discharged today. Per RN, pt is still awaiting MD clearance. Weight is stable since last visit. Pt may advance diet at tolerated at home (Soft to regular). Current PO intake: Good (75% average of 3 meals 10/16) Estimated Energy Expenditure (kcals/day) 4354-8909 kcal/day (30-35 kcal/kg IBW for pancreatitis) Estimated Protein Required (g/day) 78-98 gm/day (1.2-1.5 gm/kg IBW for pancreatitis) Estimated Fluid Required (l/day) 2-2.3 L/day (1 ml/kcal/day for maintenance) Problem/Etiology/Signs/Symptoms Inadequate nutritional intakes related to increased metabolic demands as evidenced by NPO status, possible inflammation, and inability to meet estimated nutritional requirements. *improved Expected Outcomes/Goals - Monitor advancement of diet, appetite, and PO intakes w/ goal of pt meeting at least 75% of estimated nutritional intakes, labs trending WNL, and skin integrity/wt maintenance Dietitian Recommendations * Recommend continuing full liquid diet per MD. * Consider advance diet if/when medically appropriate Follow Up High Risk: F/U in 2-3days
--- NOTE | 2018-10-17 11:24 | NUR ---
Dietitian Recommendations * Recommend continuing full liquid diet per MD. * Consider advance diet if/when medically appropriate Please see Nutrition F/U note for details. VICTOR MANUEL GAMBLE
[2018-10-17] MEDS ORDERED: AMPI3VIA27 PO (11:29)
--- NOTE | 2018-10-17 11:51 | NUR ---
at nurses station States patient is ok to Discharge made patient aware. Patient has no complaints at this time. All safety precautions in place. will continue to monitor.
[2018-10-17] MEDS: HYDROcodone/ACETAMIN 5-325 MG TAB (NORCO/ VICODIN) PO PRN (12:16)
--- NOTE | 2018-10-17 12:17 | NUR ---
Pain medication Patient has complaints of abdominal pain medicated per order. Patient is aware of D/C states family member will be here at 2pm for discharge. Patient educated responder light for assistance.Call light is with patient. No other needs at this time. will continue to monitor .
[2018-10-17 12:20] VITALS: BP_SYST 136
[2018-10-17 14:02] VITALS: BP_SYST 136
--- NOTE | 2018-10-17 15:20 | NUR ---
Discharge Patient is awake and alert. Patient shows no signs of any distress, breathing is equal and non labored.4 small incision dressings on abdomen are clean dry and intact. Patient educated on Discharge, patient understands both Wolof and Jamaican very well. Patient IV catheter removed catheter intact, applied gauze and tape to insertion side. Patient ID band removed. Patient has all of belongings and taking home with him. Patients cousin is here to take patient home. Patient requesting to walk out does not want to use walker. Patient has no other needs .Written prescriptions given to patient along with discharge paper work
[2018-10-17] MEDS ORDERED: VANCOMYCIN HCL 1.25 GM/NS 250 ML IV SCH (17:00)
== END 2018-10-17 15:20 | disposition home health service (06) | DRG 263 ==
LOC: SED 10:02 → EDSEX 10:02 → SMU 13:34
PROVIDERS: ADMIT General Practice; ATTEND General Practice
PROC: 0FT44ZZ Resection of Gallbladder, Percutaneous Endoscopic Approach (ICD-10-PCS; principal; 2018-10-11 20:30)
DX: K85.10 Biliary acute pancreatitis without necrosis or infection (principal); K75.9 Inflammatory liver disease, unspecified; K80.00 Calculus of gallbladder with acute cholecystitis without obstruction; E44.1 Mild protein-calorie malnutrition; E87.6 Hypokalemia; K66.0 Peritoneal adhesions (postprocedural) (postinfection); Z68.28 Body mass index [BMI] 28.0-28.9, adult; Z79.899 Other long term (current) drug therapy
CPT/HCPCS: 36415; 71045; 74181; 76700-TC; 78226; 80048; 80053; 80061; 80074; 80076; 80202-TC; 81003; 82962; 83036; 83605; 83690-TC; 83735-TC; 84484; 85025; 85610-TC; 87040-TC; 87081; 87186-TC; 88304; 93005; 94010; 96365; 96375; 96376; 99285; A9537; C1727; C9113; J0690; J1170; J1200; J1885; J2250; J2270; J2370; J2405; J2543; J2704; J3010; J3370; J3480; J3490; J7030; J7042; J7050; J7060; J7120

== ENCOUNTER 2021-08-05 18:02 | Emergency (ER) | payer MEDICAID ==
[~2021-08-05] VITALS: Ht 162.6 cm; Wt 83.9 kg
[~2021-08-05 18:02] MED LIST: AMPI3VIA27 PO; HYDR-4272 PO; LEVO750T45 PO; VANC250C11 IV
[2021-08-05 18:32] VITALS: BP_SYST 155
--- NOTE | 2021-08-05 18:32 | NUR ---
Pt. bib cousin with 01/26 abd. pain that started 2 hours ago accompanied by N/V Addendum: 08/05/21 at 2044 by [email or web address] Amendment erin in EDM - 08/05/21 at 2045 by [email or web address] JAZMINE Hidalgo
--- NOTE | 2021-08-05 18:50 | NUR ---
spoke with Dr. Harris regarding patients pain, orders rec'd
--- NOTE | 2021-08-05 19:00 | NUR ---
EKG and labbs drawn
--- NOTE | 2021-08-05 19:01 | NUR ---
Patient to ER bed 7 to gown for evaluation. Side rails up.
--- NOTE | 2021-08-05 19:05 | NUR ---
Report received to assume care of patient. Patient alert and oriented x 3. Reporting 10/10 epigastric pain. Denies nausea but does report vomiting NURSING PROGRAM CHAIR. Awaiting further dispo.
--- NOTE | 2021-08-05 19:13 | NUR ---
REPORT TO JOAO
[2021-08-05 19:20] LABS: BILIRUBIN,URINE NEGATIVE (NEGATIVE); CLARITY/URINE CLEAR (CLEAR); GLUCOSE,URINE NEGATIVE (NEGATIVE); KETONES,URINE NEGATIVE (NEGATIVE); LEUKOCYTE ESTERASE ,URINE NEGATIVE (NEGATIVE); NITRITE, URINE NEGATIVE (NEGATIVE); PH,URINE 7.5 (5.0-8.0); PROTEIN URINE NEGATIVE (NEGATIVE); UROBILINOGEN,URINE 0.2 (0.2-1.0)
[2021-08-05 19:24] LABS: COLOR,URINE STRAW (YELLOW)
[2021-08-05 19:25] LABS: BLOOD, URINE TRACE (NEGATIVE)
[2021-08-05 19:28] LABS: ANION GAP 9 (5-15); BASOPHILS # (AUTO) 0.1 K/uL (0.0-0.2); BASOPHILS % (AUTO) 0.5 % (0.0-2.0); CALCIUM 9.8 mg/dL (8.4-11.0); CHLORIDE 103 mmol/L (98-107); CREATININE 0.89 mg/dL (0.55-1.30); EOSINOPHILS % (AUTO) 0.1 % (0.0-4.0); GLUCOSE 119 mg/dL (70-99); HEMATOCRIT 48.5 % (36-54); HEMOGLOBIN 15.8 g/dL (14.0-18.0); LYMPHOCYTES # (AUTO) 1.3 K/uL (1.0-5.5); LYMPHOCYTES % (AUTO) 10.6 % (20.5-51.5); MEAN CORPUSCULAR HEMOGLOBIN 31 pg (27-31); MEAN CORPUSCULAR HGB CONC 33 % (32-36); MEAN CORPUSCULAR VOLUME 94 fL (79.0-98.0); MONOCYTES # (AUTO) 0.6 K/uL (0.0-1.0); MONOCYTES % (AUTO) 4.7 % (1.7-9.3); NEUTROPHILS # (AUTO) 10.1 K/uL (1.8-7.7); NEUTROPHILS % (AUTO) 84.1 % (40.0-70.0); PLATELET COUNT (AUTO) 305 K/uL (130-430); POTASSIUM 4.3 mmol/L (3.5-5.1); RED BLOOD CELL COUNT(AUTO) 5.16 MIL/uL (4.2-6.2); RED CELL DISTRIBUTION WIDTH 14.8 % (9.0-15.0); SODIUM SERUM 139 mmol/L (136-145); UREA NITROGEN, BLOOD 21 mg/dL (8-21)
[2021-08-05 19:34] LABS: GFR AFRICAN AMERICAN 116 mL/min (>90)
[2021-08-05 19:37] LABS: ALANINE AMINOTRANSFERASE 59 U/L (12-78); ALBUMIN 4.2 g/dL (3.4-4.8); ASPARTATE AMINOTRANSFERASE 19 U/L (10-37); LIPASE 138 U/L (73-393); TOTAL BILIRUBIN 0.4 mg/dL (0.0-1.0)
[2021-08-05 19:40] LABS: BACTERIA,URINE RARE /HPF (None Seen); RBC,URINE 0-3 /HPF (0-3); WBC,URINE NONE SEEN /HPF (0-3)
[2021-08-05] MEDS ORDERED: MORPHINE 4 MG INJ. 4 MG/ML VIAL IVP ONE (19:45)
[2021-08-05] MEDS ORDERED: ONDANSETRON HCL 4 MG/2 ML VIAL IVP ONE (19:45)
--- NOTE | 2021-08-05 20:15 | NUR ---
Consent obtained for CT A/P w/ IV contrast. Pt taken to CT for imaging at this time. Addendum: 08/05/21 at 6 by [email or web address] JAZMINE Hidalgo
--- NOTE | 2021-08-05 20:30 | NUR ---
Returned from CT. Noted in no acute distress. Placed back on monitor.
[2021-08-05 21:49] VITALS: BP_SYST 137
--- NOTE | 2021-08-05 21:53 | NUR ---
Patient given written and verbal discharge instructions and verbalizes understanding. ER MD Harris discussed with patient the results and treatment provided. Patient in stable condition. ID arm band removed. IV catheter removed intact and dressing applied, no active bleeding. Patient educated on pain management and to follow up with PMD. Pain Scale 1/10. Opportunity for questions provided and answered.
== END 2021-08-05 21:49 | disposition home or self-care (01) ==
LOC: SED 18:02
DX: K59.00 Constipation, unspecified (principal); R10.13 Epigastric pain; Z79.899 Other long term (current) drug therapy
CPT/HCPCS: 36415; 74177; 76376; 80053; 81000; 83690; 84484; 85025; 93005; 96374; 96375; 99285; J2270; J2405; Q9967

== ENCOUNTER 2023-10-10 19:35 | Emergency (ER) | payer MEDICAID ==
[~2023-10-10] VITALS: Ht 162.6 cm; Wt 85.3 kg
[~2023-10-10 19:35] MED LIST changes: -LEVO750T45 PO; +LEVO750T64 PO
[2023-10-10 19:44] VITALS: BP_SYST 134; PULSE 65; RESP 20; TEMP 98; O2SAT 97
[2023-10-10] MEDS: KETOROLAC TROMETHAMINE 60 MG/2 ML VIAL IM ONE (20:34)
[2023-10-10 20:47] LABS: BASOPHILS % (AUTO) 0.4 % (0.0-2.0); EOSINOPHILS # (AUTO) 0.1 K/uL (0.0-0.4); EOSINOPHILS % (AUTO) 0.7 % (0.0-4.0); HEMATOCRIT 43.1 % (36-54); HEMOGLOBIN 14.8 g/dL (14.0-18.0); LYMPHOCYTES # (AUTO) 2.5 K/uL (1.0-5.5); LYMPHOCYTES % (AUTO) 31.2 % (20.5-51.5); MEAN CORPUSCULAR HEMOGLOBIN 32 pg (27-31); MEAN CORPUSCULAR HGB CONC 34 % (32-36); MEAN CORPUSCULAR VOLUME 92 fL (79.0-98.0); MONOCYTES # (AUTO) 0.5 K/uL (0.0-1.0); MONOCYTES % (AUTO) 6.3 % (1.7-9.3); NEUTROPHILS % (AUTO) 61.4 % (40.0-70.0); PLATELET COUNT (AUTO) 241 K/uL (130-430); RED CELL DISTRIBUTION WIDTH 13.6 % (9.0-15.0); WHITE BLOOD COUNT (AUTO) 8.1 K/uL (4.8-10.8)
[2023-10-10 20:56] LABS: BILIRUBIN,URINE NEGATIVE (NEGATIVE); BLOOD, URINE NEGATIVE (NEGATIVE); CLARITY/URINE CLEAR (CLEAR); COLOR,URINE YELLOW (YELLOW); GLUCOSE,URINE NEGATIVE (NEGATIVE); KETONES,URINE NEGATIVE (NEGATIVE); LEUKOCYTE ESTERASE ,URINE NEGATIVE (NEGATIVE); NITRITE, URINE NEGATIVE (NEGATIVE); PROTEIN URINE NEGATIVE (NEGATIVE); UROBILINOGEN,URINE 0.2 (0.2-1.0)
[2023-10-10 21:16] LABS: ALBUMIN 3.5 g/dL (3.4-4.8); BILIRUBIN,DIRECT 0.1 mg/dL (0.0-0.3); CALCIUM 8.2 mg/dL (8.4-11.0); CREATININE 0.98 mg/dL (0.55-1.30); POTASSIUM 4.2 mmol/L (3.5-5.1); TOTAL BILIRUBIN 0.5 mg/dL (0.0-1.0)
[2023-10-10] MEDS ORDERED: IBUP-1971 PO (21:57)
[2023-10-10 22:10] VITALS: BP_SYST 118; PULSE 52; RESP 16; TEMP 98.6; O2SAT 96
== END 2023-10-10 22:10 | disposition home or self-care (01) ==
LOC: SED 19:35
DX: R10.11 Right upper quadrant pain (principal); Z79.899 Other long term (current) drug therapy; Z79.2 Long term (current) use of antibiotics
CPT/HCPCS: 99285; 74176; 80076; 80048; 81001; 83690; 85025; 36415; 96372; J1885; 81003